=== PATIENT | male | born 1950 | race Caucasian/White ===

== ENCOUNTER 2018-01-19 11:38 | Day surgery (SDC) | payer OTHER, SELFPAY ==
[2018-01-19 13:19] VITALS: BP 138/97; PULSE 91; RESP 16; TEMP 36.6; O2SAT 97; BMI 26.6
[2018-01-19] MEDS: SODIUM CHLORIDE 0.9% 1,000 ML 200 ML IV (13:28)
--- NOTE | 2018-01-19 13:40 | PM.HP.1 ---
History of Present Illness Date Patient Seen: 01/19/18 Time Patient Seen: 13:40 Chief complaint: SCREENING, [id number] Narrative: 67-year-old male who presents for colorectal screening since it has been 10 years from his prior examination. He has also had occasional intermittent mild bright red blood on the toilet paper consistent with hemorrhoid disease. He is not having any of those symptoms currently. Denies any other issues such as nausea, vomiting, abdominal pain, change in bowel habits, diarrhea, constipation, melena, or hematochezia. Patient History Family & Social History Social History: household members spouse Tobacco & Substance use: Smoking Status Never smoker Meds Home Medications Medication Instructions Recorded Confirmed Type aspirin 81 mg chewable tablet 81 mg PO DAILY 12/05/17 12/05/17 History multivitamin tablet 1 tab PO DAILY 12/05/17 12/05/17 History Allergies Allergy/AdvReac Type Severity Reaction Status Date / Time Penicillins Allergy Verified 12/05/17 13:54 Review of Systems Review of Systems All systems reviewed & are unremarkable except as noted in HPI and below Exam Vital Signs (past 8 hours): - 01/19/18 13:19 Temperature 98 F Pulse Rate 91 H Respiratory Rate 16 Blood Pressure 138/97 H Pulse Oximetry 97 Oxygen Delivery Method Room Air Narrative Exam Narrative: Well-nourished well-developed male in no acute distress. Alert oriented x3. is at the bedside during my visit today. Neck is supple Chest clear to auscultation Abdomen soft, nondistended, nontender, no masses Extremities show no clubbing, cyanosis, or edema Objective Labs Labs: No new laboratory or radiographic studies for review Assessment & Plan Plan: Assessment/Plan Narrative: 67-year-old male requiring colorectal screening since it has been 10 years from his prior examination. He also had some recent bright red blood per rectum. Otherwise he has absolutely no changes from his original history and physical examination is documented on the chart dated December 05, 2017. We will proceed with colonoscopy today as planned. I reiterated technical details of the procedure. Risks, benefits, alternatives were again discussed. Risks including but not limited to sedation, aspiration, bleeding, pain, missed lesion, incomplete examination, need for radiographic studies, colonic perforation, need for major abdominal surgery, and all attendant risks of major surgery were explained at length. All questions were answered to his satisfaction, and he voiced understanding. Consent was placed on the chart. We will proceed as above.
--- NOTE | 2018-01-19 13:43 | PM.PREOP ---
Pre-operative Note Interval Note Pre-op Check: Yes History & Physical Reviewed by Physician, Yes Exam Performed and Yes History & Physical exam performed today by Physician Changes: No H&P completed within 30 days and has changed as indicated here:: Patient seen and examined again today in the preoperative area. History physical examination updated and placed on the chart. Proceed with colonoscopy today as planned. ASA Class (for procedural sedation): I
[2018-01-19] MEDS: fentaNYL 250 MCG/5 ML INJ IV (15:14)
[2018-01-19] MEDS: MIDAZOLAM 5 MG/5 ML VIAL IV (15:15)
[2018-01-19 15:34] VITALS: BP 104/74; PULSE 72; RESP 16; TEMP 36.4; O2SAT 97
--- NOTE | 2018-01-19 15:34 | P.OP.ENDO_ITS ---
Operative Date/Time/Diagnoses Date of procedure: 01/19/18 Time of procedure: 15:31 Pre-op diagnosis: Recent rectal bleeding Post-op diagnosis: other (Diverticulosis but otherwise normal colon and rectum) Procedure & Clinicians Study performed: 1. Sedation per surgeon 2. Colonoscopy Same procedure as scheduled: Yes Indications: 67-year-old male with recent bright red blood per rectum. It has been 10 years at least since his last colonoscopy as well. He requires colorectal surveillance for potential colorectal neoplasia. Colonoscopy is once again recommended. Surgeon: Jhoan Purvis Procedure Notes SCOAP/Timeout: Yes Procedure in detail: After obtaining informed consent, the patient was brought to the GI suite and placed in the left lateral decubitus position on the examination table. After placement of appropriate monitors, the patient was given incremental doses of Versed and Fentanyl until an appropriate level of sedation was achieved. A time out was held per SCOAP protocol. A digital rectal examination was performed and did not reveal any masses or obstructing lesions. The colonoscope was gently passed into the patient's anus and the entire colon navigated to the level of the cecum with minimal difficulty. Once in the cecum, the scope was withdrawn being sure to go before and beyond all mucosal folds and prominences and get an excellent examination. The findings are noted above. At the level of the rectal vault, the scope was retroflexed and the internal anal canal was examined. The scope was straightened and air aspirated from the colon. The instrument was removed from the patient's body and the procedure was concluded. The patient was allowed to awaken from sedation without difficulty and taken to the post-anesthesia care unit in good condition. Scope withdrawal time: 8:25 min Sedation minutes: 20 Findings: diverticulosis, internal hemorrhoids (Grade 2) and other findings ( External hemorrhoids not currently inflamed or thrombosed) Specimen(s): none sent Complications: none Recommendations: Colonscopy in 10 years and High fiber diet Plan for aftercare: 1. Discharge home 2. Follow-up as above Follow up: as needed Disposition: PACU
[2018-01-19 15:40] VITALS: BP 120/74; PULSE 72; RESP 18; O2SAT 97
[2018-01-19 15:45] VITALS: BP 122/73; PULSE 76; RESP 18; O2SAT 100
[2018-01-19 16:06] VITALS: BP 120/70; PULSE 70; RESP 16; TEMP 36.2; O2SAT 97
== END 2018-01-19 16:08 | disposition home or self-care (01) ==
PROVIDERS: Visit Provider Surgery
PROC: 0DJD8ZZ Inspection of Lower Intestinal Tract, Via Natural or Artificial Opening Endoscopic (ICD-10-PCS; CPT 45378; principal; 2018-01-19 13:00)
DX: Z12.11 Encounter for screening for malignant neoplasm of colon (principal); K57.30 Diverticulosis of large intestine without perforation or abscess without bleeding; K64.1 Second degree hemorrhoids; K64.4 Residual hemorrhoidal skin tags
CPT/HCPCS: 45378; 99152; J2250; J3010